=== PATIENT | female | born 1995 | race Caucasian/White ===

== ENCOUNTER 2016-11-29 23:56 | Observation (INO) | payer OTHER | END 2016-11-30 01:56 | disposition home or self-care (01) | LOC: GENOP 23:56 → OB 11-30 01:00 | PROVIDERS: ADMIT Obstetrics & Gynecology | DX: O99.89 Other specified diseases and conditions complicating pregnancy, childbirth and the puerperium (principal); R10.13 Epigastric pain; Z3A.22 22 weeks gestation of pregnancy; Z79.899 Other long term (current) drug therapy | CPT/HCPCS: 93005; G0378; G0463 ==

== ENCOUNTER → 2017-01-16 | Outpatient (CLI) | payer OTHER ==
[~2017-01-16] MED LIST: IBUPROFEN600 MG PO
== END ==
LOC: GENOP 19:10
DX: O21.2 Late vomiting of pregnancy (principal); O26.893 Other specified pregnancy related conditions, third trimester; Z3A.39 39 weeks gestation of pregnancy
CPT/HCPCS: 81001; 96361; 96367; 96374; C9113; J2550; J7050; J7120

== ENCOUNTER 2017-03-05 21:08 | Outpatient (CLI) | payer OTHER | END 2017-03-06 00:04 | disposition home or self-care (01) | LOC: GENOP 21:08 | DX: O42.92 Full-term premature rupture of membranes, unspecified as to length of time between rupture and onset of labor (principal); Z3A.35 35 weeks gestation of pregnancy | CPT/HCPCS: 81001; 83518; 96366; 96374; J2300; J2550; J7120 ==

== ENCOUNTER 2017-03-27 17:37 | Inpatient (IN) | payer OTHER ==
[~2017-03-27] VITALS: Ht 170.2 cm; Wt 92.5 kg
[2017-03-27 18:23] LABS: HEMOGLOBIN 11.2 gm/dl (12.3-15.3); RED BLOOD COUNT 3.94 M/UL (4.00-5.10); WHITE BLOOD COUNT 11.4 K/UL (4.5-11.0)
[2017-03-29] MEDS ORDERED: IBUPROFEN600 MG PO (16:49)
== END 2017-03-29 16:01 | disposition home or self-care (01) | DRG 774 ==
LOC: GENOP 17:37 → OB 18:04
PROVIDERS: ADMIT Obstetrics & Gynecology
PROC: 10E0XZZ Delivery of Products of Conception, External Approach (ICD-10-PCS; principal; 2017-03-28)
PROC: 0U7C7ZZ Dilation of Cervix, Via Natural or Artificial Opening (ICD-10-PCS; principal; 2017-03-28)
PROC: 10907ZC Drainage of Amniotic Fluid, Therapeutic from Products of Conception, Via Natural or Artificial Opening (ICD-10-PCS; principal; 2017-03-28)
PROC: 3E033VJ Introduction of Other Hormone into Peripheral Vein, Percutaneous Approach (ICD-10-PCS; principal; 2017-03-28)
DX: O98.82 Other maternal infectious and parasitic diseases complicating childbirth (principal); B95.1 Streptococcus, group B, as the cause of diseases classified elsewhere; O69.81X0 Labor and delivery complicated by cord around neck, without compression, not applicable or unspecified; Z3A.38 38 weeks gestation of pregnancy; Z37.0 Single live birth; Z28.21 Immunization not carried out because of patient refusal; Z82.49 Family history of ischemic heart disease and other diseases of the circulatory system; Z83.3 Family history of diabetes mellitus; Z80.1 Family history of malignant neoplasm of trachea, bronchus and lung
CPT/HCPCS: 36415; 81001; 82800; 85014; 85018; 85025; J2590; J2795; J3010; J7120

== ENCOUNTER → 2022-02-17 | Outpatient (CLI) | payer OTHER ==
[~2022-02-17] MED LIST changes: +CELEBREX100 MG PO; +COLACE 100MG C100 MG PO
== END ==
LOC: HEART 5 02-10 09:30
DX: R42 Dizziness and giddiness (principal); R00.2 Palpitations; R00.0 Tachycardia, unspecified; R07.9 Chest pain, unspecified
CPT/HCPCS: 93306